=== PATIENT | female | born 1990 | race Caucasian/White ===

== ENCOUNTER 2017-12-05 10:28 | Emergency (ER) | payer MEDICAID ==
[~2017-12-05] VITALS: Ht 170.2 cm; Wt 53.2 kg
[2017-12-05 13:29] VITALS: BP 109/57
[2017-12-05 13:44] LABS: MICROSCOPIC INDICATED
[2017-12-05 14:10] LABS: CULTURE INDICATED? YES
== END 2017-12-05 14:25 | disposition home or self-care (01) ==
LOC: ED 13:02
DX: J02.8 Acute pharyngitis due to other specified organisms (principal); J20.8 Acute bronchitis due to other specified organisms; B34.9 Viral infection, unspecified; F17.200 Nicotine dependence, unspecified, uncomplicated
CPT/HCPCS: 71045; 71046; 81001; 87081; 87086; 87880; 93005; 99285